=== PATIENT | male | born 1950 | race Caucasian/White ===

== ENCOUNTER → 2020-07-20 18:38 | Outpatient (ROUT) | payer MEDICARE, SELFPAY ==
[2020-07-20 19:26] LABS: Aspartate Aminotransferase 31 IU/L (17-59); BUN Creatinine Ratio 21.8 (6-22); Blood Urea Nitrogen 17 mg/dL (9-20); Carbon Dioxide 27 mmol/L (22-32); Chloride 100 mmol/L (98-107); Cholesterol 170 mg/dL (140-199); Estimated Glomerular Filt Rate > 60.0 mL/min (>60); Glucose 93 mg/dL (80-110); HDL Cholesterol 79 mg/dL (40-60); HEMOLYSIS < 15 (0-50); LDL Cholesterol Calculated 77 mg/dL (<100); Potassium 4.3 mmol/L (3.4-5.1); Sodium 132 mmol/L (137-145); Triglycerides 72 mg/dL (35-150)
[2020-07-20 19:56] LABS: Prostate Specific Antigen 1.83 ng/mL (0.10-4.00)
== END ==
PROVIDERS: PCP Internal Medicine; Visit Provider Internal Medicine
DX: E78.2 Mixed hyperlipidemia (principal); N40.0 Benign prostatic hyperplasia without lower urinary tract symptoms
CPT/HCPCS: 80048; 80061; 84153; 84450

== ENCOUNTER → 2022-04-03 10:12 | Outpatient (CLI) | payer MEDICARE, OTHER, SELFPAY ==
[2022-04-03 10:36] LABS: Hemoglobin 14.5 g/dL (13.5-17.5); Mean Corpuscular HGB Conc 34.6 % (30-36); Mean Corpuscular Hemoglobin 32.4 PG (26-34); Mean Corpuscular Volume 93.7 fL (80-100); Platelet Count 198 X10^3/uL (150-400); Red Blood Cell Count 4.48 X10^6/uL (4.5-5.9); Red Cell Distribution Width 12.5 % (11.6-14.8); White Blood Cell Count 5.4 X10^3/uL (4.5-11.0)
[2022-04-03 11:24] LABS: Alanine Aminotransferase 25 IU/L (<50); Albumin Globulin Ratio 1.5 (1.0-2.8); Alkaline Phosphatase 80 U/L (38-126); Aspartate Aminotransferase 26 IU/L (17-59); Blood Urea Nitrogen 18 mg/dL (9-20); Calcium 8.9 mg/dL (8.4-10.2); Carbon Dioxide 28 mmol/L (22-32); Chloride 100 mmol/L (98-107); Cholesterol 190 mg/dL (140-199); Estimated Glomerular Filt Rate > 60 mL/min (>60); Globulin 2.6 g/dL (1.7-4.1); Glucose 69 mg/dL (80-110); HDL Cholesterol 76 mg/dL (40-60); HEMOLYSIS < 15 (0-50); LDL Cholesterol Calculated 102 mg/dL (<100); Potassium 4.1 mmol/L (3.4-5.1); Sodium 137 mmol/L (137-145); Total Protein 6.6 g/dL (6.3-8.2); Triglycerides 61 mg/dL (35-150)
[2022-04-03 11:39] LABS: TSH w/ Reflex to FT4 2.89 uIU/mL (0.47-4.68)
[2022-04-03 11:40] LABS: Prostate Specific Antigen 2.53 ng/mL (0.10-4.00)
== END ==
PROVIDERS: PCP Internal Medicine; Referring Provider Internal Medicine; Visit Provider Internal Medicine
DX: E78.2 Mixed hyperlipidemia (principal); N40.1 Benign prostatic hyperplasia with lower urinary tract symptoms; N13.8 Other obstructive and reflux uropathy
CPT/HCPCS: 36415; 80053; 80061; 84153; 84443; 85027

== ENCOUNTER → 2022-10-12 08:29 | Outpatient (CLI) | payer MEDICARE, OTHER, SELFPAY ==
[2022-10-14 07:15] LABS: PSA Free % 28.2 % (.); PSA, Total 1.7 ng/mL (0.0-4.0)
== END ==
PROVIDERS: PCP Internal Medicine; Referring Provider Internal Medicine; Visit Provider Internal Medicine
DX: R97.20 Elevated prostate specific antigen [PSA] (principal)
CPT/HCPCS: 36415; 84153; 84154

== ENCOUNTER → 2023-05-30 15:07 | Outpatient (CLI) | payer MEDICARE, OTHER, SELFPAY ==
[2023-05-30 18:06] LABS: Aspartate Aminotransferase 29 IU/L (17-59); BUN Creatinine Ratio 19.8 (6-22); Blood Urea Nitrogen 17 mg/dL (9-20); Calcium 9.3 mg/dL (8.4-10.2); Carbon Dioxide 30 mmol/L (22-32); Chloride 97 mmol/L (98-107); Cholesterol 168 mg/dL (140-199); Estimated Glomerular Filt Rate > 60 mL/min (>60); Glucose 82 mg/dL (80-110); HDL Cholesterol 80 mg/dL (40-60); HEMOLYSIS < 15 (0-50); LDL Cholesterol Calculated 74 mg/dL (<100); Potassium 4.6 mmol/L (3.4-5.1); Sodium 132 mmol/L (137-145); Triglycerides 69 mg/dL (35-150)
[2023-05-30 18:38] LABS: Prostate Specific Antigen 2.28 ng/mL (0.10-4.00)
== END ==
PROVIDERS: PCP Internal Medicine; Referring Provider Internal Medicine; Visit Provider Internal Medicine
DX: E78.2 Mixed hyperlipidemia (principal); R97.20 Elevated prostate specific antigen [PSA]
CPT/HCPCS: 36415; 80048; 80061; 84153; 84450

== ENCOUNTER → 2023-09-24 08:59 | Outpatient (CLI) | payer MEDICARE, OTHER, SELFPAY | LOC: LAB 09:00 | PROVIDERS: PCP Internal Medicine; Referring Provider Internal Medicine; Visit Provider Internal Medicine | DX: R19.7 Diarrhea, unspecified (principal); A07.1 Giardiasis [lambliasis] | CPT/HCPCS: 87045 ==

== ENCOUNTER → 2023-10-19 11:24 | Outpatient (CLI) | payer MEDICARE, OTHER, SELFPAY ==
[2023-10-24 18:37] LABS: C difficie Toxins A and B, EIA Negative (Negative)
== END ==
LOC: LAB 11:25
PROVIDERS: PCP Internal Medicine; Referring Provider Internal Medicine; Visit Provider Internal Medicine
DX: R19.7 Diarrhea, unspecified (principal)
CPT/HCPCS: 87324; 87329

== ENCOUNTER → 2024-06-03 11:48 | Outpatient (CLI) | payer MEDICARE, OTHER, SELFPAY ==
[2024-06-03 13:23] LABS: Aspartate Aminotransferase 34 IU/L (17-59); BUN Creatinine Ratio 18.2 (6-22); Blood Urea Nitrogen 16 mg/dL (9-20); Calcium 9.2 mg/dL (8.4-10.2); Carbon Dioxide 26 mmol/L (22-32); Chloride 100 mmol/L (98-107); Cholesterol 163 mg/dL (140-199); Estimated Glomerular Filt Rate > 60 mL/min (>60); Glucose 90 mg/dL (80-110); HDL Cholesterol 97 mg/dL (40-60); HEMOLYSIS < 15 (0-50); LDL Cholesterol Calculated 53 mg/dL (<100); Potassium 4.6 mmol/L (3.4-5.1); Sodium 132 mmol/L (137-145); Triglycerides 63 mg/dL (35-150)
[2024-06-03 13:52] LABS: Prostate Specific Antigen 2.59 ng/mL (0.10-4.00)
== END ==
PROVIDERS: PCP Internal Medicine; Referring Provider Internal Medicine; Visit Provider Internal Medicine
DX: E78.2 Mixed hyperlipidemia (principal); R97.20 Elevated prostate specific antigen [PSA]
CPT/HCPCS: 36415; 80048; 80061; 84153; 84450

== ENCOUNTER 2024-06-17 08:59 | Day surgery (SDC) | payer MEDICARE, OTHER, SELFPAY ==
--- NOTE | 2024-06-17 | PATH_ITS ---
[facility] Accession Number: [id number] No. of containers..01 Tissue . 01 Material submitted: . rectum - RECTAL POLYP . 01 Diagnosis: RECTAL POLYP: Hyperplastic polyp. Negative for dysplasia or malignancy. Additional step sections examined. MRV 06/23/2024 1323 Local . 01 Comment: As part of routine quality assurance specialist, Dr. Oneill has reviewed this case and agrees with the diagnosis of hyperplastic polyp. . 01 Electronically signed: . Jin Bazan MD, PhD, Pathologist NPI- [id number] . 01 Gross description: . Received in formalin with two patient identifiers and rectal polyp, are multiple gibbs soft tissue fragments aggregating to 1.3 x 0.9 x 0.2 cm. Filtered and submitted in A1. ([id number]) /MRV 06/18/2024 1804 Local . 01 Microscopic: . Sections are of a serrated colon polyp with patchy mild atypia. A Ki67 immunohistochemical stain highlights scattered mitotic activity, but no significant mitotic activity is seen at the luminal surface. The features favor a reactive process over a neoplasm. . * This test was developed and the performance characteristics were validated by [facility]. It has not been cleared or approved by the [place].S. Food and Drug Administration. . 01 Pathologist provided ICD-10: K62.1 . 01 CPT . 641967, V71127 Specimen Comment: A courtesy copy of this report has been sent to [facility] Performed at: [address] [address], [place], [place] [id number] MD Elmo Oneill MD Phone: [phone]
[2024-06-17 09:59] VITALS: BP 135/72; PULSE 60; RESP 14; TEMP 36.6; O2SAT 100
[2024-06-17] MEDS: LACTATED RINGERS 1,000 ML 42 ML IV (10:03)
--- NOTE | 2024-06-17 10:24 | P.HP_ITS ---
History of Present Illness History of Present Illness Date Patient Seen: 06/17/24 Time Patient Seen: 10:24 Chief complaint: SDC Narrative: 73-year-old white male presents for 5 year follow-up after polyp on previous colonoscopy. No changes in health. [facility] Medical History (Updated 06/17/24 @ 10:25 by Adrián Brooks MD) Colon cancer screening Onychomycosis Neuropathy of left peroneal nerve Rising PSA level History of onychomycosis History of colonic polyps Chronic insomnia History of melanoma Erectile dysfunction Mixed hyperlipidemia Social History (System 10/16/17 @ 16:24 by Kaur Varma) details: , retired [employer], three children Smoking Status: Former smoker alcohol intake: current Meds Home Medications and Allergies Home Medications Medication Instructions Recorded Confirmed Type rosuvastatin 10 mg tablet 10 mg PO DAILY #90 tabs 06/03/24 06/17/24 Rx tadalafil 5 mg tablet 5 mg PO DAILY PRN sexual activity 06/03/24 06/17/24 Rx #20 tabs zolpidem 5 mg tablet 5 mg PO BEDTIME PRN insomnia #20 06/03/24 06/17/24 Rx tabs Allergies Allergy/AdvReac Type Severity Reaction Status Date / Time No Known Drug Allergies Allergy Verified 06/17/24 09:48 Review of Systems Review of Systems ROS: Yes All systems reviewed with the patient and are negative except as otherwise documented Exam Vital Signs (past 8 hours): - 06/17/24 09:59 Temperature 97.9 F Pulse Rate 60 Respiratory Rate 14 Blood Pressure 135/72 Pulse Oximetry 100 Oxygen Delivery Method Room Air Oxygen Delivery Method Room Air Narrative Exam Narrative: Gen: NAD, sitting comfortably in bed, appears well HEENT: Sclera are anicteric, head is normocephalic and atraumatic, trachea is midline. CV: RRR, no JVD Resp: clear to auscultation bilaterally, equal chest wall movement bilaterally Abd: soft, nontender, normoactive bowel sounds Ext: no edema, full range of motion Neuro: Cranial nerves II-XII grossly intact, no focal deficits Skin: No erythema or ecchymosis Assessment & Plan Assessment and plan (1) Colon cancer screening: Status: Acute Assessment & Plan narrative: Patient presents for colonoscopy Risks, benefits, alternatives to colonoscopy explained, including but not limited to bowel perforation or other serious complication requiring surgery at less than 1 in 5000 colonoscopies, abdominal pain, cramping or bleeding and less than 1% of colonoscopies, and the chances that we find a diagnosis that would require further intervention of about 2%. Patient agrees to proceed. Time-Based Coding :: [TOTAL MINUTES] spent with patient and on the chart (including review of chart, obtaining history, exam, reviewing outside data, placing orders, documenting ex am and treatment plan, and counseling patient) on [DATE]. [employer]EE Senior Marketing Associate Document charge(s): No
--- NOTE | 2024-06-17 10:47 | PM.OP.COLON ---
Operative Date/Time/Diagnoses Date of procedure: 06/17/24 Time of procedure: 10:48 Pre-op diagnosis: Colon screening Post-op diagnosis: other (Rectal polyp) Procedure & Clinicians Study performed: Colonoscopy with cold snare polypectomy rectal polyp Same procedure as scheduled: Yes Indications: Colon screening Surgeon: Adrián Brooks Procedure Notes SCOAP/Timeout: Performed Procedure in detail: Time-out was performed. Mac was induced. Patient was placed in left lateral decubitus position. The perineum was inspected without any gross abnormality. Lubricated pediatric colonoscope was inserted and advanced to the cecum. The terminal ileum was intubated. The colonoscope was withdrawn slowly inspecting the circumference of the colon. A carpet like, greater than 10 cm in size, rectal polyp was removed with cold snare polypectomy completely, and retrieved. Very small polyps may have been missed, prep quality was adequate. Retroflexed view of the rectum showed small, non prolapsed nonbleeding internal hemorrhoids. The scope was withdrawn the patient was taken to PACU in good condition. Scope withdrawal time: 12 Sedation minutes: 17 Findings: polyp(s) Specimen(s): other (1. Rectal polyp) Complications: none Impression: Rectal polyp Post-procedure Recommendations: Colonoscopy in 3 years Follow up: as needed Disposition: PACU
[2024-06-17 10:51] VITALS: BP 109/64; PULSE 56; RESP 12; TEMP 36.3; O2SAT 99
[2024-06-17 10:56] VITALS: BP 113/66; PULSE 56; RESP 12; O2SAT 99
[2024-06-17 11:01] VITALS: BP 109/66; PULSE 62; RESP 14; O2SAT 100
[2024-06-17 11:18] VITALS: BP 120/71; PULSE 61; RESP 12; O2SAT 99
== END 2024-06-17 11:21 | disposition home or self-care (01) ==
PROVIDERS: PCP Internal Medicine; Referring Provider Surgery; Visit Provider Surgery
PROC: 0DJD8ZZ Inspection of Lower Intestinal Tract, Via Natural or Artificial Opening Endoscopic (ICD-10-PCS; CPT 45378; principal; 2024-06-17 10:15)
DX: Z12.11 Encounter for screening for malignant neoplasm of colon (principal); Z86.0100 Personal history of colon polyps, unspecified; K64.8 Other hemorrhoids; K62.1 Rectal polyp
CPT/HCPCS: 45385; J2704